=== PATIENT | female | born 1980 | race Hispanic/Latino ===

== ENCOUNTER 2016-03-14 10:29 | Day surgery (SDC) | payer OTHER ==
[~2016-03-14] VITALS: Ht 152.4 cm; Wt 62.9 kg
[2016-03-14] VITALS (12 sets, daily range): BP systolic 97–134; BP diastolic 51–76; PULSE 49–70; RESP 10–18; O2SAT 97–100
[~2016-03-14 10:29] MED LIST: ACET-171 PO; CITA20TA11 PO; OXYB10TA PO; PRE20 PO; levoFLOXacin Inj 500 MG in IV Premix 1 EACH IV ONE
[2016-03-14] MEDS ORDERED: Dexamethasone 4 mg/mL Inj ONE (10:30)
[2016-03-14] MEDS ORDERED: Propofol 10,000 mCg/mL 20 mL Inj ONE (10:30)
[2016-03-14] MEDS ORDERED: Phenylephrine/NS 100 mCg/mL 10 mL Syringe IVPUSH ONE (10:30)
[2016-03-14] MEDS ORDERED: MetoCLOpramide 5 mg/mL 2 mL Inj ONE (10:30)
[2016-03-14] MEDS ORDERED: fentaNYL-PF 50 mCg/mL 2 mL Inj ONE (10:30)
[2016-03-14] MEDS ORDERED: Ondansetron 2 mg/mL 2 mL Inj ONE (10:30)
[2016-03-14] MEDS: Lactated Ringer's 1,000 ML IV SCH ×2 (11:09→11:42)
[2016-03-14] MEDS ORDERED: levoFLOXacin 500 mg/100 mL D5W Premix IV ONE (11:24)
[2016-03-14] MEDS ORDERED: Ondansetron 2 mg/mL 2 mL Inj IVPUSH PRN (11:55)
[2016-03-14] MEDS ORDERED: Labetalol 5 mg/mL 4 mL Inj IV PRN (11:55)
[2016-03-14] MEDS ORDERED: Lactated Ringer's 500 ML IV PRN (11:55)
[2016-03-14] MEDS ORDERED: MetoCLOpramide 5 mg/mL 2 mL Inj IVPUSH PRN (11:55)
[2016-03-14] MEDS ORDERED: HYDROmorphone 1 mg/mL Inj IVPUSH PRN (11:55)
[2016-03-14] MEDS ORDERED: Phenylephrine 10,000 mCg/mL Inj IVPUSH PRN (11:55)
[2016-03-14] MEDS ORDERED: hydrALAZINE 20 mg/mL Inj IVPUSH PRN (11:55)
[2016-03-14] MEDS ORDERED: EPHEDrine Sulfate 50 mg/mL Inj IVPUSH PRN (11:55)
[2016-03-14] MEDS ORDERED: fentaNYL-PF 50 mCg/mL 2 mL Inj IVPUSH PRN (11:55)
[2016-03-14] MEDS ORDERED: Lactated Ringer's 1,000 ML IV SCH (11:55)
[2016-03-14] MEDS ORDERED: Atropine 0.4 mg/mL Inj IVPUSH PRN (11:55)
--- NOTE | 2016-03-14 11:56 | PCM.HPANE ---
Patient Data Surgeon Admitting Provider: Attending Provider:Jeimy Conley MD Primary Care Physician:Jennifer Vidal MD Other Provider:Yoly Carreraingham Anesthesia Reason for Visit Frequency Of Micturition Ht/WT & BMI Height (Feet): 5 Height (Inches): 0 Weight (Kilograms): 64.68 Body Mass Index 27.00 Allergies Coded Allergies: venlafaxine (Verified Adverse Reaction, Severe, NIGHTMARES, 03/13/16) Past Anesthesia History Anesthesia History: Denies:: Anesthesia Reactions, Fam Anesthesia Reaction, Fam Malignant Hypertherm, Malignant Hyperthermia Diabetes History Hx Diabetes?: No MRSA MRSA: No Medications Reported Medications Citalopram 20 Mg [id number] Mg PO DAILY Ref 0 03/13/16 Acetaminophen 500 Mg [id number],000 Mg PO TID PRN For Fever 03/13/16 Discontinued Reported Medications Prednisone (PredniSONE)20 Mg [id number] Mg PO DAILY Ref 0 TAPERING DOSES 03/13/16 Oxybutynin Chloride ER 10 Mg Tab.[id number] Mg PO DAILY Ref 0 03/13/16 [Vitamins] No Conflict Check 04/28/13 [Depression Med] No Conflict Check 04/28/13 History History of ENT Problems?: No Hx of Heart Problems?: Yes Cardiovascular History: Positive for:: Chest Pain (2014-ED VISIT FOR NON- CARDIAC CHEST WALL PAIN) Denies:: Congestive Heart Failure Heart Murmur Hypertension Valvular Heart Disease Hx of Respiratory Problem?: No Respiratory History: Denies:: Tuberculosis Use of C-PAP Machine Hx Neurologic Problems?: Yes Neurological History: Positive for:: Headaches Hx of GI Problems?: No Hx of Problems?: Yes Genitourinary History: Positive for:: Urinary Tract Infection (HX OF ACUTE CYSTITIS) Female Hx: Denies:: Currently (S/P BTL) Skin History: Positive for:: History Skin Disorders? (C/OF HAIR LOSS W/ "BALD " & THINNING SPOTS ON SCALP) Denies:: Pressure Ulcers Hx Musculoskeletal Problems?: Yes Musculoskeletal History: Positive for:: Osteoarthritis Hx of Psycho/Social Problems?: Yes Psycho Social History: Positive for:: Anxiety Hx Depression Hx Surgeries?: Yes (TUBAL LIGATION, BLADDER SLING) Hx Any Other Health Problems?: Yes Other History: Denies:: Cancer Endocrine Disease Hospitalization Thyroid Disease History Blood Transfusions: Denies:: Blood Transfusions Hx Diabetes: No Hx Alcohol Use: NoHx Substance Use: NoHave You Smoked inLast 12 mo: No Stop/Bang S-Snoring: Do You Snore Loudly: No T-Tired: feel tired, fatigued: Yes O-Obsered: Observed not breath: No P-Blood Pressure: treated: No B- Body Mass Index > 35 kg/m2: No A- Age over 50: No N- Neck Large Circumference: No G- Gender Male: No FANTA Total Score: 1 Risk Assessment Category Category 1A: Patient has history of documented sleep apnea, and HAS NOT received any narcotic, sedative or anesthesia administration during this stay. Category 1B: Patient has history of documented sleep apnea, and HAS received any narcotic , sedative or anesthesia administration during this stay Category 2: Patient has SUSPECTED Obstructive Sleep Apnea, and HAS received any narcotic , sedative or anesthesia administration during this stay. Category 3: Patient has SUSPECTED Obstructive Sleep Apnea and HAS NOT received narcotic, sedative or anesthesia administration during this stay. Category 4: Outpatient in Procedural Areas with known sleep apnea or who screen positive for High Risk via the STOP/BANG questionnaire. Exam Exam General Appearance: Alert, Oriented X3, Cooperative, No Acute Distress HEENT/AIRWAY: MP 2, Neck Movement (FROM), Mouth Opening (3 FBMO) Lungs: Clear to Auscultation, Normal Air Movement Heart: Exam Unremarkable, Regular Rate/Rhythm, No Murmurs/Rubs/Gallops Plan Impression Patient chart reviewed, patient interviewed and anesthestic plan with risks, benefits, and alternatives discussed, and informed consent obtained. NPO Status: > 8hrs ASA Physical Status: ASA2 Mod Systemic Disease Anesthetic Plan: GA Bene/Risks/Altern/Consents: Yes HP Complete Prior to Induction: Yes Angelo Hernandez MD Mar 14, 2016 10:05
[2016-03-14] MEDS ORDERED: Bupivacaine-MPF 0.5% W/EPI 30 mL Inj INFILTRATE ONE (12:06)
[2016-03-14] MEDS ORDERED: Belladonna Alk-Opium 60 mg Rectal Suppository RECTAL ONE (12:20)
[2016-03-14] MEDS ORDERED: Estrogens Conjugated 30 Gm Vaginal Cream VAGINAL ONE (12:30)
[2016-03-14] MEDS ORDERED: HYDROcodone-APAP 5-325 mg Tablet PO PRN (12:40)
[2016-03-14] MEDS ORDERED: Ondansetron 8 mg ODT Tablet PO PRN (12:40)
--- NOTE | 2016-03-14 13:28 | PCM.ANEP2 ---
Post Anesthesia Evaluation ASA/CMS Post Anesthesia VS in Patient's Normal Range?: Yes Resp Stable; Airway Patent?: Yes CV Function & Hydration Stable: Yes Mental Status Recovered?: Yes Pain control Satisfactory?: Yes N/V Control Satisfactory?: Yes Angelo Hernandez MD Mar 14, 2016 13:28
--- NOTE | 2016-03-14 13:28 | PCM.ANEP1 ---
Post Anesthesia Phase 1 PACU Phase 1 Assessment Vital Signs Vital Signs Date Time Temp Pulse Resp B/P Pulse Ox O2 Delivery O2 Flow Rate FiO2 03/14/16 13:17 54 16 122/68 97 Room Air 03/14/16 13:10 51 17 134/71 100 Room Air 03/14/16 13:05 49 16 134/65 99 Room Air 03/14/16 13:00 50 18 123/76 100 Room Air 03/14/16 12:55 36.1 52 14 123/70 98 Room Air 03/14/16 12:50 53 13 109/51 97 Room Air 03/14/16 12:45 50 10 102/55 100 Simple Mask 8 03/14/16 12:40 53 13 97/54 100 Simple Mask 8 03/14/16 12:39 36.4 53 16 102/55 99 Simple Mask 8 03/14/16 11:12 36.1 53 16 107/66 97 Room Air Anesthetic Administered: GA Level of Alertness: Awake, talking VILLATORO's with Equal Strength: Yes Pain: No Nausea or Vomiting: No Oxygen Delivery: Simple Mask Lungs: Clear to Auscultation, Normal Air Movement Dermatome Level: Full Sensation Angelo Hernandez MD Mar 14, 2016 13:27
--- NOTE | 2016-03-15 14:08 | OP ---
[address] [address] OPERATIVE REPORT PATIENT: CHIOMA HAWKINS : 1980 MR#: [id number] ADMIT: 03/14/2016 JOB ID: [id number] DATE OF SURGERY: 03/14/2016 SURGEON: Jeimy Conley MD PROCEDURE: Mid urethral sling by transobturator tape and cystoscopy. ANESTHESIA: General. PREOPERATIVE DIAGNOSIS(ES): Stress urinary incontinence. Status post hysterectomy. POSTOPERATIVE DIAGNOSIS(ES): Stress urinary incontinence. Status post hysterectomy. INDICATIONS: The patient is a 35-year-old with very bothersome stress urinary continence. Already status post one procedure. Never able to figure out exactly what this was. Did not appear to be a sling. Done in [place] in the past. Also status post hysterectomy. Desiring treatment for bothersome severe stress urinary incontinence. Counseled about risks and benefits and treatment options and elected to proceed with mid urethral sling. Extra care was taken to discussed the use of a polypropylene mesh sling and she wished to proceed. PROCEDURE IN DETAIL: After appropriate informed consent was obtained, the patient was brought to the operating room. She received IV antibiotics prior to onset of the procedure. SCDs were placed. Adequate general anesthesia induced. She was carefully placed in dorsal lithotomy position and all pressure points carefully padded. Cleaned, prepped, and draped in the usual sterile fashion. A 15-Canadian Bermudez catheter was placed in the patient's bladder, which was drained, clamped out of the field. Weighted speculum was used for visualization. The bladder neck was located, location of the mid urethra. The area overlying the mid urethra was infiltrated with Marcaine with epinephrine. Sharp dissection was carried out down to the level of the mid urethra and then out laterally to the inferior pubic rami on both sides sharply, bluntly, and with electrocautery. We then identified the superior medial border of the obturator foramen. This was found with a finder needle. The area itself was numbed up with Marcaine. Stab incisions were placed overlying this area. We used the C hooks from the [employer] system to puncture carefully through the superior medial border of the obturator foramen. Carried the needle out into the vaginal wound, taking care not to buttonhole. This was done on the right and the mesh itself was pulled through. The left side repeated this as well. Cystoscopy was carried out with the hooks in place on the left and the mesh on the right. There was no hematuria and no evidence of puncture of the bladder. Everything was quite intact. The scope itself was drawn. The Bermudez catheter was replaced. We then tensioned the sling underneath the mid urethra with some a gentle tension as per the directions for the Aaron sling system. The tails were trimmed. The wound itself was irrigated out copiously with antibiotic solution. Hemostasis was good. The wound was closed with 2-0 Vicryl sutures running. The stab incisions were closed with Dermabond. Marcaine with epinephrine was used for long-acting postop pain control. The patient tolerated the procedure very well and was awakened and taken in stable condition to the postanesthesia care unit.
[2016-07-19] MEDS ORDERED: BENZ100C8 PO (15:24)
== END 2016-03-14 23:59 | disposition home or self-care (01) ==
LOC: SAS 10:29
PROVIDERS: ATTEND Urology
DX: N39.46 Mixed incontinence (principal); R35.0 Frequency of micturition; F41.9 Anxiety disorder, unspecified; Z87.440 Personal history of urinary (tract) infections; F32.9 Major depressive disorder, single episode, unspecified; Z90.710 Acquired absence of both cervix and uterus
CPT/HCPCS: 57288; C1771; J1100; J2370; J2405; J2765; J7120

== ENCOUNTER 2016-07-20 10:00 | Day surgery (SDC) | payer OTHER ==
[~2016-07-20] VITALS: Ht 157.5 cm; Wt 64.0 kg
[~2016-07-20 10:00] MED LIST changes: -ACET-171 PO; +BENZ100C8 PO; -OXYB10TA PO; -PRE20 PO; -levoFLOXacin Inj 500 MG in IV Premix 1 EACH IV ONE
[2016-07-20] MEDS ORDERED: MethylprednisoLONE Depot 80 mg/mL Inj ONE (10:01)
[2016-07-20] MEDS ORDERED: Bupivacaine-MPF 0.25% 30 mL Inj ONE (10:01)
[2016-07-20 10:52] VITALS: BP 113/70; PULSE 53; RESP 16; O2SAT 99
--- NOTE | 2016-07-20 15:03 | PCM.PROC ---
Procedure Note Date of Service: July 20, 2016 Pre Procedure Diagnosis: PROCEDURE: LEFT Sacroiliac joint injection (fluoroscopically guided) PRE-PROCEDURE DIAGNOSIS: Sacroiliitis POST-PROCEDURE DIAGNOSIS: same INDICATION: 35-year-old female with posterior hip pain, suggestive of sacroiliitis ASA / ANTICOAGULATION: No asa x 7 days PERFORMED BY: Steve Chamorro MD DESCRIPTION OF PROCEDURE: Patient was met in the holding area. Consent was signed, site was confirmed and all questions were answered. Patient was taken to the procedure suite and placed prone on the procedure table. Local anesthesia with 1% lidocaine was injected into the epidermidis and dermis. A 22-gauge Quincke spinal needle was advanced towards the sacroiliac joint after visualization was optimized fluoroscopically in the AP view. Proper positioning in the joint was confirmed by injecting contrast. We then took a lateral view to reconfirm proper positioning in the sacroiliac joint. 80mg depomedrol with 2 cc of 0.25% Bupivicaine injected without difficulty. ANESTHESIA: Local. EBL: None. No Blood Products Used COMPLICATIONS: None SPECIMENS: None POST-PROCEDURE DISPOSITION: Patient tolerated the procedure well was returned to the holding area in stable condition. They were discharged home when all discharge criteria were met. Fluro time: See Radiology Report Evaluation/Physical Exam before discharge revealed: DISCHARGE MEDICATIONS: none FOLLOW UP: Keep appointment for epidural steroid injection Steve Chamorro MD * Pain Management * Anesthesiology [facility] Pain Management [facility] [place], [place] Steve Chamorro MD July 20, 2016 15:03
[2016-08-16] MEDS ORDERED: BENZ100C8 PO (14:37)
== END 2016-07-20 23:59 | disposition home or self-care (01) ==
LOC: END 10:00
PROVIDERS: ATTEND Anesthesiology Pain Medicine
DX: M46.1 Sacroiliitis, not elsewhere classified (principal); M54.42 Lumbago with sciatica, left side
CPT/HCPCS: G0260; J1040

== ENCOUNTER 2016-08-17 10:30 | Day surgery (SDC) | payer OTHER ==
[~2016-08-17] VITALS: Ht 152.4 cm; Wt 65.3 kg
[2016-08-17] MEDS ORDERED: Iohexol 240 mg/mL 10 mL Inj ONE (10:31)
[2016-08-17] MEDS ORDERED: MethylprednisoLONE Depot 80 mg/mL Inj ONE (10:31)
[2016-08-17 10:40] VITALS: BP 107/68; PULSE 56; RESP 16; O2SAT 96
--- NOTE | 2016-08-17 15:48 | PCM.PROC ---
Procedure Note Date of Service: Aug 17, 2016 Pre Procedure Diagnosis: PROCEDURE: Lumbar Interlaminar epidural steroid injection. LEFT paramedian L5- S1 ASA / ANTI-COAGULATION . No asa x 7 days. PRE-PROCEDURE DIAGNOSIS: Lumbar radiculopathy POST-PROCEDURE DIAGNOSIS: same INDICATION: 35-year-old patient with LEFT leg pain consistent with lumbar radiculopathy PERFORMED BY: Steve Chamorro MD DESCRIPTION OF PROCEDURE: Patient was met in the holding area. Consent was signed, site was confirmed and all questions were answered. Patient was taken to the procedure suite and placed prone on the procedure table. Area was prepped and draped in sterile fashion. Local anesthesia with 1% lidocaine was injected. An 18-gauge Touhy needle was advanced toward the interlaminar space using fluoroscopic guidance after optimizing the AP view. A loss of resistance syringe was attached as we approached the epidural space in the lateral view. After [id number] was obtained, radioopaque contrast was injected under live fluro which confirmed epidural placement without intravascular uptake. Then , 80 mg depomedrol was injected without difficulty. ANESTHESIA: Local. EBL: None. No Blood Products Used COMPLICATIONS: None SPECIMENS: None POST-PROCEDURE DISPOSITION: Patient was returned to the holding area in stable condition. They were discharged home when all discharge criteria were met. Evaluation/Physical Exam before discharge revealed: DISCHARGE MEDICATIONS: FOLLOW UP: Keep scheduled follow-up Steve Chamorro MD * Pain Management * Anesthesiology .ED: Y: Patient given care and follow up instructions Steve Chamorro MD Aug 17, 2016 15:48
== END 2016-08-17 23:59 | disposition home or self-care (01) ==
LOC: END 10:30
PROVIDERS: ATTEND Anesthesiology Pain Medicine
DX: M54.16 Radiculopathy, lumbar region (principal); M54.42 Lumbago with sciatica, left side
CPT/HCPCS: 62323; J1040